=== PATIENT | female | born 1985 | race Caucasian/White ===

== ENCOUNTER 2019-05-20 15:30 | Emergency (ER) | payer OTHER, MEDICAID, SELFPAY ==
[2019-05-20] VITALS (8 sets, daily range): BP systolic 141–167; BP diastolic 97–114; PULSE 95–123; RESP 18–30; TEMP 37.2; O2SAT 95–100; BMI 31.0
--- NOTE | 2019-05-20 15:40 | DI.RAD.S_ITS ---
PROCEDURE: XR CHEST 1V INDICATIONS: chest pain/ sob TECHNIQUE: One view of the chest was acquired. COMPARISON: None. FINDINGS: Surgical changes and devices: None. Lungs and pleura: Lungs are clear. No pleural effusions or pneumothorax. Mediastinum: Mediastinal contours appear normal. Heart size is normal. Bones and chest wall: No suspicious bony lesions. Overlying soft tissues appear unremarkable. IMPRESSION: No acute cardiopulmonary disease. Dictated by: Aniya Rain M.D. on 05/20/2019 at 16:04 Approved by: Aniya Rain M.D. on 05/20/2019 at 16:05
[2019-05-20] MEDS: ALBUTEROL/IPRATROPIUM 3 ML AMPUL INH (15:46)
[2019-05-20 15:54] LABS: Add Manual Diff / Slide Review NO; Basophils Absolute Auto 0 /uL (0-100); Basophils Percent Auto 0.3 % (0-2); Eosinophils Absolute Auto 600 /uL (0-450); Eosinophils Percent Auto 4.7 % (2-4); Hematocrit 47.1 % (36-46); Hemoglobin 16.1 g/dL (12.0-16.0); Lymphocytes Absolute Auto 2400 /uL (1100-4500); Lymphocytes Percent Auto 17.6 % (25-40); Mean Corpuscular HGB Conc 34.3 % (30-36); Mean Corpuscular Hemoglobin 32.7 PG (26-34); Mean Corpuscular Volume 95.4 fL (80-100); Monocytes Absolute Auto 1000 /uL (0-900); Monocytes Percent Auto 7.5 % (3-14); Neutrophils Absolute Auto 9500 /uL (1500-7000); Neutrophils Percent Auto 69.9 % (50-75); Platelet Count 216 X10^3/uL (150-400); Red Blood Cell Count 4.93 X10^6/uL (4.0-5.2); Red Cell Distribution Width 12.4 % (11.6-14.8); White Blood Cell Count 13.5 X10^3/uL (4.5-11.0)
[2019-05-20 16:02] LABS: D Dimer 219 ng/mL (<230)
[2019-05-20 16:06] LABS: Alanine Aminotransferase 10 IU/L (9-52); Albumin 4.4 g/dL (3.5-5.0); Albumin Globulin Ratio 1.3 (1.0-2.8); Alkaline Phosphatase 82 U/L (38-126); Aspartate Aminotransferase 17 IU/L (14-36); BUN Creatinine Ratio 15.7 (6-22); Bilirubin Total 0.6 mg/dL (0.2-1.3); Blood Urea Nitrogen 11 mg/dL (7-17); Calcium 9.3 mg/dL (8.4-10.2); Carbon Dioxide 24 mmol/L (22-32); Chloride 105 mmol/L (98-107); Creatine Kinase 58 U/L (30-135); Estimated Glomerular Filt Rate > 60.0 mL/min (>60); Globulin 3.4 g/dL (1.7-4.1); Glucose 110 mg/dL (70-100); HEMOLYSIS < 15 (0-50); Lipase 106 U/L (23-300); Potassium 3.2 mmol/L (3.4-5.1); Sodium 141 mmol/L (137-145); Total Protein 7.8 g/dL (6.3-8.2)
[2019-05-20 16:18] LABS: Troponin I < 0.012 ng/mL (0.01-0.034)
[2019-05-20 16:27] LABS: B Type Natriuretic Peptide < 100 (<100)
[2019-05-20] MEDS: methylPREDNISolone 125 MG/2 ML VIAL IV (16:27)
[2019-05-20] MEDS: SODIUM CHLORIDE 0.9% 1,000 ML 1000 ML IV (16:27)
--- NOTE | 2019-05-20 17:51 | ED_ITS ---
HPI - Chest Pain <NOHEMY Dow - Last Filed: 05/20/19 20:27> General Chief Complaint: Chest Pain Stated Complaint: cant breath, chest hurts Time Seen by Provider: 05/20/19 15:33 Source: patient Mode of arrival: ambulatory Limitations: no limitations History of Present Illness HPI narrative: The patient is a 33-year-old female current smoker with history of pelvic inflammatory disease who presents with the chief complaint chest pain and shortness of breath. She states she was cleaning a bathroom yesterday and felt sudden onset of shortness of breath. She denies any fevers nausea vomiting or diarrhea. She states the chest pain is substernal, worse with breathing and nonradiating. She states she feels as though she is wheezing. She denies any history of asthma or reactive airway disease, but admits that she is a smoker and notes that this is bad for her. No recent travel or surgeries. Related Data Previous Rx's Medication Instructions Recorded doxycycline hyclate 100 mg PO Q12H #28 cap 06/22/16 hydrocodone-acetaminophen [[place]] 1 - 2 tab PO QID PRN #20 tab 06/22/16 ondansetron [Zofran ODT] 4 mg SUBLINGUAL Q6HP PRN #15 odt 06/22/16 prednisone 50 mg PO DAILY #5 tab 05/20/19 Allergies Allergy/AdvReac Type Severity Reaction Status Date / Time amoxicillin [AMOXICILLIN] Allergy Unknown Verified 05/20/19 16:26 floxacillin [FLOXACILLIN] Allergy Unknown Verified 05/20/19 16:26 levofloxacin [LEVOFLOXACIN] Allergy Unknown Verified 05/20/19 16:26 Penicillins [PENICILLINS] Allergy Unknown Verified 05/20/19 16:26 Quinolones [QUINOLONES] Allergy Unknown Verified 05/20/19 16:26 Review of Systems <NOHEMY Dow - Last Filed: 05/20/19 20:27> Review of Systems Narrative: GENERAL: Denies chills, fatigue, malaise, fever, sweats. HEENT: Denies sinus pain, ear pain, sore throat, difficulty swallowing, dizziness. RESPIRATORY: see HPI CARDIOVASCULAR: See HPI GASTROINTESTINAL: Denies nausea, vomiting, abdominal pain, diarrhea, constipation, melena. : Denies dysuria, frequency, incontinence, hematuria, urinary retention. MUSCULOSKELETAL: denies weakness, joint pain, or bony pain SKIN: Denies rash, skin lesions, or other NEUROLOGIC: Denies weakness, headache, numbness, change in speech, confusion, seizures, incoordination. PSYCHIATRIC: No concerning psychosocial issues. 12 point review of systems is negative except for those stated above PFSH <NOHEMY Dow - Last Filed: 05/20/19 20:27> Social History Smoking Status: Current every day smoker Social History Smoking Status: Current every day smoker Exam <NOHEMY Dow - Last Filed: 05/20/19 20:27> Narrative Exam Narrative: GENERAL: This is a well-nourished, well-developed patient, in no acute distress HEAD: Atraumatic. Normocephalic. No temporal or scalp tenderness. EYES: Pupils equal round and reactive. Extraocular motions intact. No scleral icterus. No injection or drainage. ENT: Nose without bleeding, purulent drainage or septal hematoma. Throat without erythema, tonsillar hypertrophy or exudate. Uvula midline. Airway patent. NECK: Trachea midline. No JVD or lymphadenopathy. Supple, nontender, no men ingeal signs. CARDIOVASCULAR: Tachycardic rate and regular rhythm RESPIRATORY: Expiratory wheezes all marti bilaterally to auscultation. Breath sounds equal bilaterally. No rales, or rhonchi. Taken neck on initial exam. GASTROINTESTINAL: Abdomen soft, non-tender, nondistended. No hepato-spleno megaly, or palpable masses. No guarding. EXTREMITIES: No clubbing, cyanosis, or edema. No joint tenderness, effusion, or edema noted. BACK: Nontender without deformity or crepitance. No flank tenderness. NEURO: AOx3. SKIN: No rash or erythema on visible scan. Initial Vital Signs Initial Vital Signs: Vital Signs Temperature 99.0 F 05/20/19 15:30 Pulse Rate 123 H 05/20/19 15:30 Respiratory Rate 28 H 05/20/19 15:30 Blood Pressure 167/114 H 05/20/19 15:30 Pulse Oximetry 98 05/20/19 15:30 <DO Jordy Cuellar Last Filed: 05/21/19 07:11> Initial Vital Signs Initial Vital Signs: Vital Signs Temperature 99.0 F 05/20/19 15:30 Pulse Rate 123 H 05/20/19 15:30 Respiratory Rate 28 H 05/20/19 15:30 Blood Pressure 167/114 H 05/20/19 15:30 Pulse Oximetry 98 05/20/19 15:30 Course <HERNANDEZ Dow - Last Filed: 05/20/19 20:27> Orders Ordered: Discontinued Medications Albuterol (Ventolin Hfa Prepack) 1 box MISC SEEINSTR ONE Stop: 05/20/19 19:05 Last Admin: 05/20/19 19:23 Dose: 1 box Documented by: SUSAN Albuterol/Ipratropium (Duoneb) 3 ml INH NOW ONE Stop: 05/20/19 15:41 Last Admin: 05/20/19 15:46 Dose: 3 ml Documented by: DANIELLE Sodium Chloride (Normal Saline 0.9%) 1,000 mls @ 1,000 mls/hr IV BOLUS ONE Stop: 05/20/19 17:14 Last Infusion: 05/20/19 18:42 Dose: 0 mls/hr Documented by: Admin: 05/20/19 16:27 Dose: 1,000 mls/hr Documented by: SENIA Methylprednisolone (Solu-Medrol 125 Mg Vial) 125 mg IV NOW ONE Stop: 05/20/19 16:16 Last Admin: 05/20/19 16:27 Dose: 125 mg Documented by: SENIA Potassium Chloride (Potassium Chloride) 40 meq PO NOW ONE Stop: 05/20/19 19:45 Last Admin: 05/20/19 20:00 Dose: 40 meq Documented by: HFARRINGTO Vital Signs Vital signs: Vital Signs - 8 hr 05/20/19 15:30 05/20/19 16:30 05/20/19 17:00 Temperature 99.0 F Pulse Rate 123 H 98 H 95 H Respiratory Rate 28 H 18 18 Blood Pressure 167/114 H Blood Pressure [Left Arm] 141/99 H 145/102 H Pulse Oximetry 98 100 100 05/20/19 17:30 05/20/19 18:00 05/20/19 18:30 Temperature Pulse Rate 107 H 103 H 104 H Respiratory Rate 30 H 22 26 H Blood Pressure Blood Pressure [Left Arm] 141/97 H 149/110 H 143/100 H Pulse Oximetry 100 98 98 05/20/19 19:28 05/20/19 19:54 Temperature Pulse Rate 104 H 97 H Respiratory Rate 25 H 20 Blood Pressure Blood Pressure [Left Arm] 150/105 H 141/99 H Pulse Oximetry 97 95 <Fernando Ryan, - Last Filed: 05/21/19 07:11> Orders Ordered: Discontinued Medications Albuterol (Ventolin Hfa Prepack) 1 box MISC SEEINSTR ONE Stop: 05/20/19 19:05 Last Admin: 05/20/19 19:23 Dose: 1 box Documented by: SUSAN Albuterol/Ipratropium (Duoneb) 3 ml INH NOW ONE Stop: 05/20/19 15:41 Last Admin: 05/20/19 15:46 Dose: 3 ml Documented by: DANIELLE Sodium Chloride (Normal Saline 0.9%) 1,000 mls @ 1,000 mls/hr IV BOLUS ONE Stop: 05/20/19 17:14 Last Infusion: 05/20/19 18:42 Dose: 0 mls/hr Documented by: Admin: 05/20/19 16:27 Dose: 1,000 mls/hr Documented by: SENIA Methylprednisolone (Solu-Medrol 125 Mg Vial) 125 mg IV NOW ONE Stop: 05/20/19 16:16 Last Admin: 05/20/19 16:27 Dose: 125 mg Documented by: SENIA Potassium Chloride (Potassium Chloride) 40 meq PO NOW ONE Stop: 05/20/19 19:45 Last Admin: 05/20/19 20:00 Dose: 40 meq Documented by: NEVIN Vital Signs Vital signs: Vital Signs - 8 hr 05/20/19 15:30 05/20/19 16:30 05/20/19 17:00 Temperature 99.0 F Pulse Rate 123 H 98 H 95 H Respiratory Rate 28 H 18 18 Blood Pressure 167/114 H Blood Pressure [Left Arm] 141/99 H 145/102 H Pulse Oximetry 98 100 100 05/20/19 17:30 05/20/19 18:00 05/20/19 18:30 Temperature Pulse Rate 107 H 103 H 104 H Respiratory Rate 30 H 22 26 H Blood Pressure Blood Pressure [Left Arm] 141/97 H 149/110 H 143/100 H Pulse Oximetry 100 98 98 05/20/19 19:28 05/20/19 19:54 Temperature Pulse Rate 104 H 97 H Respiratory Rate 25 H 20 Blood Pressure Blood Pressure [Left Arm] 150/105 H 141/99 H Pulse Oximetry 97 95 MDM - Chest Pain <Stefanyenrique Nuñezmer, PSYCHOLOGIST RESEARCH ASSISTANT-BC - Last Filed: 05/20/19 20:27> Lab Data Result diagrams: 05/20/19 15:40 05/20/19 15:40 Labs: Lab Results 05/20/19 05/20/19 05/20/19 Range/Units 15:40 15:40 15:40 WBC 13.5 H (4.5-11.0) X10^3/uL RBC 4.93 (4.0-5.2) X10^6/uL Hgb 16.1 H (12.0-16.0) g/dL Hct 47.1 H (36-46) % MCV 95.4 (80-100) fL MCH 32.7 (26-34) PG MCHC 34.3 (30-36) % RDW 12.4 (11.6-14.8) % Plt Count 216 (150-400) X10^3/uL Neut % (Auto) 69.9 (50-75) % Lymph % (Auto) 17.6 L (25-40) % [place] % (Auto) 7.5 (3-14) % Eos % (Auto) 4.7 H (2-4) % Baso % (Auto) 0.3 (0-2) % Neut # (Auto) 9500 H (7862-0474) /uL Lymph # (Auto) 2400 (4940-2694) /uL [place] # (Auto) 1000 H (0-900) /uL Eos # (Auto) 600 H (0-450) /uL Baso # (Auto) 0 (0-100) /uL D-Dimer 219 (<230) ng/mL Sodium 141 (137-145) mmol/L Potassium 3.2 L (3.4-5.1) mmol/L Chloride 105 (98-107) mmol/L Carbon Dioxide 24 (22-32) mmol/L BUN 11 (7-17) mg/dL Creatinine 0.70 (0.52-1.04) mg/dL Estimated GFR > 60.0 (>60) mL/min BUN/Creatinine Ratio 15.7 (6-22) Glucose 110 H (70-100) mg/dL Calcium 9.3 (8.4-10.2) mg/dL Total Bilirubin 0.6 (0.2-1.3) mg/dL AST 17 (14-36) IU/L ALT 10 (9-52) IU/L Alkaline Phosphatase 82 (38-126) U/L Total Creatine Kinase 58 (30-135) U/L CK-MB (CK-2) TNP CK-MB (CK-2) Rel Index TNP Troponin I < 0.012 (0.01-0.034) ng/mL B-Natriuretic Peptide < 100 (<100) Total Protein 7.8 (6.3-8.2) g/dL Albumin 4.4 (3.5-5.0) g/dL Globulin 3.4 (1.7-4.1) g/dL Albumin/Globulin Ratio 1.3 (1.0-2.8) Lipase 106 (23-300) U/L Urine RBC (0-5/HPF) Urine WBC (0-5/HPF) Ur Squamous Epith Cells (0-5/HPF) Urine Bacteria (None) Urine Mucus (Negative) Ur Culture Indicated? 05/20/19 05/20/19 Range/Units 18:35 19:26 WBC (4.5-11.0) X10^3/uL RBC (4.0-5.2) X10^6/uL Hgb (12.0-16.0) g/dL Hct (36-46) % MCV (80-100) fL MCH (26-34) PG MCHC (30-36) % RDW (11.6-14.8) % Plt Count (150-400) X10^3/uL Neut % (Auto) (50-75) % Lymph % (Auto) (25-40) % [place] % (Auto) (3-14) % Eos % (Auto) (2-4) % Baso % (Auto) (0-2) % Neut # (Auto) (2981-0913) /uL Lymph # (Auto) (8145-8659) /uL [place] # (Auto) (0-900) /uL Eos # (Auto) (0-450) /uL Baso # (Auto) (0-100) /uL D-Dimer (<230) ng/mL Sodium (137-145) mmol/L Potassium (3.4-5.1) mmol/L Chloride (98-107) mmol/L Carbon Dioxide (22-32) mmol/L BUN (7-17) mg/dL Creatinine (0.52-1.04) mg/dL Estimated GFR (>60) mL/min BUN/Creatinine Ratio (6-22) Glucose (70-100) mg/dL Calcium (8.4-10.2) mg/dL Total Bilirubin (0.2-1.3) mg/dL AST (14-36) IU/L ALT (9-52) IU/L Alkaline Phosphatase (38-126) U/L Total Creatine Kinase 57 (30-135) U/L CK-MB (CK-2) TNP CK-MB (CK-2) Rel Index TNP Troponin I < 0.012 (0.01-0.034) ng/mL B-Natriuretic Peptide (<100) Total Protein (6.3-8.2) g/dL Albumin (3.5-5.0) g/dL Globulin (1.7-4.1) g/dL Albumin/Globulin Ratio (1.0-2.8) Lipase (23-300) U/L Urine RBC None seen (0-5/HPF) Urine WBC None seen (0-5/HPF) Ur Squamous Epith Cells 5-10 /hpf H (0-5/HPF) Urine Bacteria None seen (None) Urine Mucus 2+ H (Negative) Ur Culture Indicated? Cult not indicated Urine Dip Bedside Urine Glucose Negative Bedside Urine Bilirubin - Negative Bedside Urine Ketone - Negative Urine Specific [place] 1.025 Bedside Urine Occult Blood - Negative Bedside Urine pH 6 Bedside Urine Protein +/- 15 Bedside Urine Urobilinogen +/- 1mg Bedside Urine Nitrite - Negative Bedside Urine Leukocytes - Negative Esterase Imaging Data Chest x-ray: Radiologist's impression: ValdiviaHilda 33 F [address] [address] XRay Report Signed Patient: Hilda Valdivia [facility]#: [id number] : 1985Acct:[id number] Age/Sex: te of Service: 05/20/19 Loc: ED Accession Number: [id number] Procedure: XR chest 1V Ordering Provider: Stefany Sharma PROCEDURE: XR CHEST 1V INDICATIONS: chest pain/ sob TECHNIQUE: One view of the chest was acquired. COMPARISON: None. FINDINGS: Surgical changes and devices: None. Lungs and pleura: Lungs are clear. No pleural effusions or pneumothorax. Mediastinum: Mediastinal contours appear normal. Heart size is normal. Bones and chest wall: No suspicious bony lesions. Overlying soft tissues appear unremarkable. IMPRESSION: No acute cardiopulmonary disease. Dictated by: Aniya Rain M.D. on 05/20/2019 at 16:04 Approved by: Aniya Rain M.D. on 05/20/2019 at 16:05 ECG Data Attestation: I personally reviewed and interpreted this ECG as follows: Interpretation: Side cardiac. Ventricular rate 108. No ST elevation or depression. IN are interval 136. QRS duration 90. Viewed by Dr Ryan MDM Narrative Medical decision making narrative: The patient is a 33-year-old female who comes in with shortness of breath after cleaning with chemicals yesterday. She has negative troponin and was wheezing on exam. She was given a DuoNeb and felt relief. She also has a normal BNP, negative D-dimer, negative troponin, and grossly normal lab work. She felt much improved after DuoNeb. The patient 2- troponins, she received a spacer with albuterol prepack. I discussed a burst of steroids, strongly encouraged smoking cessation. Discussed coming back to the ER for any further chest pain, significant shortness of breath etc. Patient has no questions or concerns upon discharge and states comfort with going home. <Fernando Ryan, DO - Last Filed: 05/21/19 07:11> Lab Data Labs: Lab Results 05/20/19 05/20/19 05/20/19 Range/Units 15:40 15:40 15:40 WBC 13.5 H (4.5-11.0) X10^3/uL RBC 4.93 (4.0-5.2) X10^6/uL Hgb 16.1 H (12.0-16.0) g/dL Hct 47.1 H (36-46) % MCV 95.4 (80-100) fL MCH 32.7 (26-34) PG MCHC 34.3 (30-36) % RDW 12.4 (11.6-14.8) % Plt Count 216 (150-400) X10^3/uL Neut % (Auto) 69.9 (50-75) % Lymph % (Auto) 17.6 L (25-40) % [place] % (Auto) 7.5 (3-14) % Eos % (Auto) 4.7 H (2-4) % Baso % (Auto) 0.3 (0-2) % Neut # (Auto) 9500 H (1759-4646) /uL Lymph # (Auto) 2400 (1622-2032) /uL [place] # (Auto) 1000 H (0-900) /uL Eos # (Auto) 600 H (0-450) /uL Baso # (Auto) 0 (0-100) /uL D-Dimer 219 (<230) ng/mL Sodium 141 (137-145) mmol/L Potassium 3.2 L (3.4-5.1) mmol/L Chloride 105 (98-107) mmol/L Carbon Dioxide 24 (22-32) mmol/L BUN 11 (7-17) mg/dL Creatinine 0.70 (0.52-1.04) mg/dL Estimated GFR > 60.0 (>60) mL/min BUN/Creatinine Ratio 15.7 (6-22) Glucose 110 H (70-100) mg/dL Calcium 9.3 (8.4-10.2) mg/dL Total Bilirubin 0.6 (0.2-1.3) mg/dL AST 17 (14-36) IU/L ALT 10 (9-52) IU/L Alkaline Phosphatase 82 (38-126) U/L Total Creatine Kinase 58 (30-135) U/L CK-MB (CK-2) TNP CK-MB (CK-2) Rel Index TNP Troponin I < 0.012 (0.01-0.034) ng/mL B-Natriuretic Peptide < 100 (<100) Total Protein 7.8 (6.3-8.2) g/dL Albumin 4.4 (3.5-5.0) g/dL Globulin 3.4 (1.7-4.1) g/dL Albumin/Globulin Ratio 1.3 (1.0-2.8) Lipase 106 (23-300) U/L Urine RBC (0-5/HPF) Urine WBC (0-5/HPF) Ur Squamous Epith Cells (0-5/HPF) Urine Bacteria (None) Urine Mucus (Negative) Ur Culture Indicated? 05/20/19 05/20/19 Range/Units 18:35 19:26 WBC (4.5-11.0) X10^3/uL RBC (4.0-5.2) X10^6/uL Hgb (12.0-16.0) g/dL Hct (36-46) % MCV (80-100) fL MCH (26-34) PG MCHC (30-36) % RDW (11.6-14.8) % Plt Count (150-400) X10^3/uL Neut % (Auto) (50-75) % Lymph % (Auto) (25-40) % [place] % (Auto) (3-14) % Eos % (Auto) (2-4) % Baso % (Auto) (0-2) % Neut # (Auto) (4967-3134) /uL Lymph # (Auto) (4845-1183) /uL [place] # (Auto) (0-900) /uL Eos # (Auto) (0-450) /uL Baso # (Auto) (0-100) /uL D-Dimer (<230) ng/mL Sodium (137-145) mmol/L Potassium (3.4-5.1) mmol/L Chloride (98-107) mmol/L Carbon Dioxide (22-32) mmol/L BUN (7-17) mg/dL Creatinine (0.52-1.04) mg/dL Estimated GFR (>60) mL/min BUN/Creatinine Ratio (6-22) Glucose (70-100) mg/dL Calcium (8.4-10.2) mg/dL Total Bilirubin (0.2-1.3) mg/dL AST (14-36) IU/L ALT (9-52) IU/L Alkaline Phosphatase (38-126) U/L Total Creatine Kinase 57 (30-135) U/L CK-MB (CK-2) TNP CK-MB (CK-2) Rel Index TNP Troponin I < 0.012 (0.01-0.034) ng/mL B-Natriuretic Peptide (<100) Total Protein (6.3-8.2) g/dL Albumin (3.5-5.0) g/dL Globulin (1.7-4.1) g/dL Albumin/Globulin Ratio (1.0-2.8) Lipase (23-300) U/L Urine RBC None seen (0-5/HPF) Urine WBC None seen (0-5/HPF) Ur Squamous Epith Cells 5-10 /hpf H (0-5/HPF) Urine Bacteria None seen (None) Urine Mucus 2+ H (Negative) Ur Culture Indicated? Cult not indicated Urine Dip Bedside Urine Glucose Negative Bedside Urine Bilirubin - Negative Bedside Urine Ketone - Negative Urine Specific [place] 1.025 Bedside Urine Occult Blood - Negative Bedside Urine pH 6 Bedside Urine Protein +/- 15 Bedside Urine Urobilinogen +/- 1mg Bedside Urine Nitrite - Negative Bedside Urine Leukocytes - Negative Esterase Discharge Plan Departure Patient Disposition: Home Clinical Impression: Expiratory wheezing Discharge Date/Time: 05/20/19 20:07 Instructions: How to Use a Metered-Dose Inhaler, DI for Shortness of Breath, DI for Reactive Airway Disease-Adult Activity Restrictions/Additional Instructions: I have given you a prescription of steroids, which she can take for 5 days. This should help decrease the inflammation in her lungs. Overall you do not have any pneumonia on x-ray, 2 negative cardiac troponins, and grossly normal lab work. Her potassium was slightly low end of normal, so we gave the replacement in the emergency department. Please follow up with primary care provider. I have given you a contact information for the health human resource statistician. Our walk-in clinic also does follow up as needed. Please come back to the emergency department for any acute concerns such as severe difficulty breathing, concern of heart attack or stroke. Prescriptions: New prednisone 50 mg tablet 50 mg PO DAILY Qty: 5 RF: 0 No Action doxycycline hyclate 100 MG capsule 100 mg PO Q12H Qty: 28 RF: 0 hydrocodone-acetaminophen [[place]] 5 MG/325 MG tablet 1 - 2 tab PO QID PRNQty: 20 RF: 0 ondansetron [Zofran ODT] 4 MG tablet,disintegrating 4 mg Sublingual Q6HP PRNQty: 15 RF: 0 Referrals: [facility] [Outside] <Fernando Ryan, DO - Last Filed: 05/21/19 07:11> Sign Out Provider Sign Out Attestation: I was available for consultation during this patient's emergency department encounter
[2019-05-20 18:57] LABS: Creatine Kinase 57 U/L (30-135)
[2019-05-20 19:10] LABS: Troponin I < 0.012 ng/mL (0.01-0.034)
[2019-05-20] MEDS: ALBUTEROL HFA PREPACK 1 BOX MISC (19:23)
[2019-05-20 19:27] LABS: Bacteria Urine None Seen; RBC Urine None Seen (0-5/HPF); WBC Urine None Seen (0-5/HPF)
[2019-05-20 19:52] LABS: Squamous Epithelial Cell Urine 5-10 /HPF (0-5/HPF)
[2019-05-20 19:53] LABS: Culture Indicated Urine Cult Not Indicated; Mucus Urine 2+ (Negative)
[2019-05-20] MEDS: POTASSIUM CHLORIDE 20 MEQ/15 ML UDC 40 MEQ PO (20:00)
== END 2019-05-20 20:07 | disposition home or self-care (01) ==
PROVIDERS: Emergency Provider Nurse Practitioner Family
DX: R06.2 Wheezing (principal)
CPT/HCPCS: 36415; 36591; 71045; 80053; 81003; 81015; 82550; 83690; 83880; 84484; 85025; 85379; 93005; 96361; 96374; 99284; 99285; J2930

== ENCOUNTER 2019-07-19 15:18 | Emergency (ER) | payer OTHER, MEDICAID, SELFPAY ==
[2019-07-19 15:22] VITALS: BP 156/111; PULSE 101; RESP 20; TEMP 36.7; O2SAT 100
--- NOTE | 2019-07-19 16:09 | ED_ITS ---
HPI - Fever <HERNANDEZ Dow - Last Filed: 07/19/19 16:21> General Chief Complaint: Fever Stated Complaint: thinks strep throat Time Seen by Provider: 07/19/19 15:51 Source: patient Mode of arrival: Ambulatory Limitations: no limitations History of Present Illness HPI Narrative: The patient is a 33-year-old female current smoker with history of wheezing who presents with a chief complaint of sore throat and fever x3 days. She states that she has been exposed to sick people. She complains of nausea, but states she is eating and drinking. She is concerned about strep throat as she was exposed to a recent case. She denies any cough or congestion. Denies any ear pain Related Data Previous Rx's Medication Instructions Recorded azithromycin See Rx Instructions .ROUTE 07/19/19 .COMPLEX #6 tab ondansetron 4 mg PO Q6H PRN #20 tab 07/19/19 Allergies Allergy/AdvReac Type Severity Reaction Status Date / Time amoxicillin [AMOXICILLIN] Allergy Unknown Verified 05/20/19 16:26 floxacillin [FLOXACILLIN] Allergy Unknown Verified 05/20/19 16:26 levofloxacin [LEVOFLOXACIN] Allergy Unknown Verified 05/20/19 16:26 Penicillins [PENICILLINS] Allergy Unknown Verified 05/20/19 16:26 Quinolones [QUINOLONES] Allergy Unknown Verified 05/20/19 16:26 Review of Systems <HERNANDEZ Dow - Last Filed: 07/19/19 16:21> Review of Systems Narrative: GENERAL: See HPI HEENT: See HPI RESPIRATORY: Denies dyspnea, cough, wheezing, hemoptysis, sputum. CARDIOVASCULAR: Denies chest pain, palpitations, orthopnea, edema, GASTROINTESTINAL: Denies nausea, vomiting, abdominal pain, diarrhea, constipation, melena. : Denies dysuria, frequency, incontinence, hematuria, urinary retention. MUSCULOSKELETAL: denies weakness, joint pain, or bony pain SKIN: Denies rash, skin lesions, or other NEUROLOGIC: Denies weakness, headache, numbness, change in speech, confusion, seizures, incoordination. PSYCHIATRIC: No concerning psychosocial issues. 12 point review of systems is negative except for those stated above Patient History <NOHEMY Dow - Last Filed: 07/19/19 16:21> Social History Smoking Status: Current every day smoker alcohol intake frequency: 0-2 drinks per day Substance Use Type: marijuana Exam <NOHEMY Dow - Last Filed: 07/19/19 16:21> Narrative Exam Narrative: GENERAL: This is a well-nourished, well-developed patient, no acute distress HEAD: Atraumatic. Normocephalic. No temporal or scalp tenderness. EYES: Pupils equal round and reactive. Extraocular motions intact. No scleral icterus. No injection or drainage. ENT: Nose without bleeding, purulent drainage or septal hematoma. Throat with erythema, exudate, +1 tonsils. Uvula midline. Airway patent. NECK: Trachea midline. No JVD or lymphadenopathy. Supple, nontender, no meningeal signs. CARDIOVASCULAR: Regular rate and rhythm RESPIRATORY: Clear to auscultation. Breath sounds equal bilaterally. No wheezes, rales, or rhonchi. No cough. No increased respiratory effort. No accessory muscle use. GASTROINTESTINAL: Abdomen soft, non-tender, nondistended. No hepato- splenomegaly, or palpable masses. No guarding. EXTREMITIES: No clubbing, cyanosis, or edema. No joint tenderness, effusion, or edema noted. BACK: Nontender without deformity or crepitance. No flank tenderness. NEURO: AOx3. SKIN: No rash or erythema. Initial Vital Signs Initial Vital Signs: Vital Signs Temperature 98.0 F 07/19/19 15:22 Pulse Rate 101 H 07/19/19 15:22 Respiratory Rate 20 07/19/19 15:22 Blood Pressure 156/111 H 07/19/19 15:22 Pulse Oximetry 100 07/19/19 15:22 <Nery Lora MD - Last Filed: 07/19/19 18:15> Initial Vital Signs Initial Vital Signs: Vital Signs Temperature 98.0 F 07/19/19 15:22 Pulse Rate 101 H 07/19/19 15:22 Respiratory Rate 20 07/19/19 15:22 Blood Pressure 156/111 H 07/19/19 15:22 Pulse Oximetry 100 07/19/19 15:22 Course <NOHEMY Dow - Last Filed: 07/19/19 16:21> Vital Signs Vital signs: Vital Signs - 8 hr 07/19/19 15:22 07/19/19 16:26 Temperature 98.0 F 97.8 F Pulse Rate 101 H 99 H Respiratory Rate 20 18 Blood Pressure 156/111 H Blood Pressure [Right Arm] 136/103 H Pulse Oximetry 100 99 <Nery Lora MD - Last Filed: 07/19/19 18:15> Vital Signs Vital signs: Vital Signs - 8 hr 07/19/19 15:22 07/19/19 16:26 Temperature 98.0 F 97.8 F Pulse Rate 101 H 99 H Respiratory Rate 20 18 Blood Pressure 156/111 H Blood Pressure [Right Arm] 136/103 H Pulse Oximetry 100 99 MDM - Fever <MARIETTA Dow-BC - Last Filed: 07/19/19 16:21> Lab Data Labs: Point of Care Testing Rapid Strep A Positive MDM Narrative Medical decision making narrative: The patient is a 33-year-old female who presents with a chief complaint of sore throat and fever. Her rapid strep in the emergency department is positive. She is allergic to penicillins, amoxicillin, quinolones, thus I will treat her with azithromycin at this point time. I did discussed follow-up with primary care provider, and gave her contact information for [facility] resources. Given her nausea, I stated I would give her some Zofran as well. Discussed coming back to the emergency department for any acute concerns such as inability to keep down fluids etc. Discussed importance of follow-up if worsening or no improvement. 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 Patient states understanding return precautions, follow-up care and has no questions or concerns upon discharge. <Nery Lora MD - Last Filed: 07/19/19 18:15> Lab Data Labs: Point of Care Testing Rapid Strep A Positive Discharge Plan Departure Patient Disposition: Home Clinical Impression: Strep throat Discharge Date/Time: 07/19/19 16:27 Instructions: Strep Throat (Alternative Therapy), DI for Strep Throat Activity Restrictions/Additional Instructions: Today we found that you have strep throat. I have sent a prescription of Zofran for nausea as well as an antibiotic to [facility] in [place]. I have given the contact information for [facility] human resource adviser, who can help you arrange a primary care provider. Please come back to the emergency department for any acute concerns such as inability keep down fluids etc Please use [id number] medications as needed and able for pain and/or fever, please do saltwater gargles I have also given you a work note. Prescriptions: New azithromycin 250 mg tablet See Rx Instructions .ROUTE .COMPLEX Qty: 6 RF: 0 ondansetron 4 mg tablet,disintegrating 4 mg PO Q6H PRN (Reason: nausea and vomiting) Qty: 20 RF: 0 Referrals: [facility] Resources [Outside] Stand Alone Forms: Work Release Note
[2019-07-19 16:26] VITALS: BP 136/103; PULSE 99; RESP 18; TEMP 36.6; O2SAT 99
== END 2019-07-19 16:27 | disposition home or self-care (01) ==
PROVIDERS: Emergency Provider Nurse Practitioner Family
DX: J02.0 Streptococcal pharyngitis (principal)
CPT/HCPCS: 87880; 99282; 99283

== ENCOUNTER → 2023-08-25 10:14 | Outpatient (CLI) | payer OTHER, MEDICAID, SELFPAY ==
[2023-08-25 11:55] LABS: BUN Creatinine Ratio 16.8 (6-22); Blood Urea Nitrogen 16 mg/dL (7-17); Calcium 9.6 mg/dL (8.4-10.2); Carbon Dioxide 28 mmol/L (22-32); Chloride 101 mmol/L (98-107); Estimated Glomerular Filt Rate > 60 mL/min (>60); Glucose 103 mg/dL (70-100); HEMOLYSIS < 15 (0-50); Potassium 4.3 mmol/L (3.4-5.1); Sodium 136 mmol/L (137-145)
[2023-08-25 12:02] LABS: NT-proBNP (BNP-Adult 18+) 496 pg/mL (<125)
== END ==
PROVIDERS: PCP Nurse Practitioner; Referring Provider Nurse Practitioner; Visit Provider Nurse Practitioner
DX: I27.20 Pulmonary hypertension, unspecified (principal)
CPT/HCPCS: 36415; 80048; 83880